=== PATIENT | female | born 1990 | race Caucasian/White ===

== ENCOUNTER 2019-08-28 22:40 | Emergency (ER) | payer MEDICAID ==
[2019-08-28 22:51] VITALS: BP 127/74
--- NOTE | 2019-08-28 23:14 | ER Document Report ---
ED Medical Screen (RME) - General Chief Complaint: Vaginal Bleeding Stated Complaint: VAGINAL BLEEDING Time Seen by Provider: 08/28/19 23:10 Mode of Arrival: Ambulatory Information source: Patient Notes: Patient is an otherwise healthy 29-year-old female presenting to the emergency department with chief complaint of vaginal bleeding in the setting of . Patient reports she had a positive approximately 2 weeks ago. Last menstrual cycle was in the middle of June putting her at potentially about 6 weeks . Patient reports tonight she started having bright red vaginal bleeding. She also has low abdominal cramping. Denies passage of any clots. Exam: Mild lower abdominal tenderness without guarding or rebound. I have greeted and performed a rapid initial assessment of this patient. A comprehensive ED assessment and evaluation of the patient, analysis of test results and completion of the medical decision making process will be conducted by additional ED providers. I have specifically instructed the patient or family members with the patient to immediately return to any nursing staff should anything change in the patient's condition or with their chief complaint. This medical record was dictated with voice recognizing software. There may be grammatical, syntax errors that are unintended. TRAVEL OUTSIDE OF THE [place] IN LAST 30 DAYS: No - Related Data Allergies/Adverse Reactions: No Known Allergies Allergy (Unverified 08/28/19 23:12) Past Medical History - Social History Chew tobacco use (# tins/day): No Frequency of alcohol use: None Physical Exam - Vital signs Vitals: Temp Pulse Resp BP Pulse Ox 98.1 F 77 20 127/74 H 100 08/28/19 22:50 08/28/19 22:50 08/28/19 22:50 08/28/19 22:50 08/28/19 22:50 Course - Vital Signs Vital signs: Temp Pulse Resp BP Pulse Ox 98.1 F 77 20 127/74 H 100 08/28/19 23:10 08/28/19 23:10 08/28/19 23:10 08/28/19 23:10 08/28/19 23:10
[2019-08-29 00:30] LABS: ABSOLUTE EOSINOPHILS # (AUTO) 0.3 10^3/uL (0.0-0.6); ABSOLUTE LYMPHOCYTES (AUTO) 2.2 10^3/uL (0.5-4.7); ABSOLUTE MONOCYTES (AUTO) 0.6 10^3/uL (0.1-1.4); ABSOLUTE NEUT (AUTO) 7.2 10^3/uL (1.7-8.2); BASOPHILS % (AUTO) 0.5 % (0-2); EOSINOPHILS % (AUTO) 2.9 % (0-6); HEMATOCRIT 37.5 % (36.0-47.0); HEMOGLOBIN 12.4 g/dL (12.0-15.5); LYMPHOCYTES % (AUTO) 20.8 % (13-45); MEAN CORPUSCULAR HEMOGLOBIN 27.7 pg (27.0-33.4); MEAN CORPUSCULAR HGB CONC 33.1 g/dL (32.0-36.0); MEAN CORPUSCULAR VOLUME 84 fl (80-97); MONOCYTES % (AUTO) 6.2 % (3-13); PLATELET COUNT 200 10^3/uL (150-450); RED BLOOD COUNT 4.49 10^6/uL (3.72-5.28); RED CELL DISTRIBUTION WIDTH 13.8 % (11.5-14.0); SEGMENTED NEUTROPHILS % (AUTO) 69.6 % (42-78); TOTAL CELLS COUNTED % (AUTO) 100 %; WHITE BLOOD COUNT 10.3 10^3/uL (4.0-10.5)
[2019-08-29 00:35] LABS: APPEARANCE,URINE SLIGHTLY-CLOUDY; BILIRUBIN,URINE NEGATIVE (NEGATIVE); COLOR,URINE YELLOW; GLUCOSE, URINE NEGATIVE (NEGATIVE); KETONES,URINE NEGATIVE (NEGATIVE); LEUKOCYTE ESTERASE,URINE TRACE (NEGATIVE); NITRITE,URINE NEGATIVE (NEGATIVE); PROTEIN,URINE NEGATIVE (NEGATIVE); URINE SPECIFIC GRAVITY 1.021; UROBILINOGEN,URINE NEGATIVE mg/dL (<2.0)
== END 2019-08-29 00:33 | disposition left against medical advice (07) ==
LOC: ER 22:40
DX: O20.9 Hemorrhage in early pregnancy, unspecified (principal); O26.891 Other specified pregnancy related conditions, first trimester; R10.30 Lower abdominal pain, unspecified; Z3A.00 Weeks of gestation of pregnancy not specified; Z53.20 Procedure and treatment not carried out because of patient's decision for unspecified reasons
CPT/HCPCS: 36415; 81001; 84702; 85025; 86900; 86901; 99281

== ENCOUNTER 2019-08-29 15:01 | Emergency (ER) | payer MEDICAID ==
--- NOTE | 2019-08-29 15:10 | ER Document Report ---
ED Medical Screen (RME) - General Chief Complaint: Vaginal Bleeding Stated Complaint: VAGINAL BLEEDING Time Seen by Provider: 08/29/19 15:04 Mode of Arrival: Ambulatory Information source: Patient Notes: 29-year-old female presented to ED for vaginal bleeding and pelvic cramping that started yesterday. 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 She states it was very heavy bleeding last night. She states her last menstrual cycle was around mid June and she is supposed to be around 2 months . She states she did not pass any tissue that she knows of just a lot of heavy bleeding. She states that the bleeding is much banquet director today. Will get blood urine and ultrasound to evaluate this . Patient does not know her blood type so we will get a RhoGam also. Patient states she does not smoke drink or use any drugs. Patient states she is also had some dizziness and cramping and lightheaded since yesterday. I have greeted and performed a rapid initial assessment of this patient. A comprehensive ED assessment and evaluation of the patient, analysis of test results and completion of medical decision making process will be conducted by an additional ED providers. TRAVEL OUTSIDE OF THE [place] IN LAST 30 DAYS: No - Related Data Allergies/Adverse Reactions: No Known Allergies Allergy (Unverified 08/28/19 23:12) Physical Exam - Vital signs Vitals: Temp Pulse Resp BP Pulse Ox 98.1 F 77 20 127/74 H 100 08/28/19 23:10 08/28/19 23:10 08/28/19 23:10 08/28/19 23:10 08/28/19 23:10 Course - Vital Signs Vital signs: Temp Pulse Resp BP Pulse Ox 98.1 F 77 20 127/74 H 100 08/28/19 23:10 08/28/19 23:10 08/28/19 23:10 08/28/19 23:10 08/28/19 23:10
[2019-08-29 15:42] LABS: ABSOLUTE EOSINOPHILS # (AUTO) 0.2 10^3/uL (0.0-0.6); ABSOLUTE LYMPHOCYTES (AUTO) 1.7 10^3/uL (0.5-4.7); ABSOLUTE MONOCYTES (AUTO) 0.5 10^3/uL (0.1-1.4); ABSOLUTE NEUT (AUTO) 6.7 10^3/uL (1.7-8.2); BASOPHILS % (AUTO) 0.4 % (0-2); EOSINOPHILS % (AUTO) 2.6 % (0-6); HEMATOCRIT 39.8 % (36.0-47.0); HEMOGLOBIN 13.5 g/dL (12.0-15.5); LYMPHOCYTES % (AUTO) 18.2 % (13-45); MEAN CORPUSCULAR HEMOGLOBIN 28.1 pg (27.0-33.4); MEAN CORPUSCULAR HGB CONC 33.9 g/dL (32.0-36.0); MEAN CORPUSCULAR VOLUME 83 fl (80-97); PLATELET COUNT 201 10^3/uL (150-450); RED CELL DISTRIBUTION WIDTH 13.7 % (11.5-14.0); SEGMENTED NEUTROPHILS % (AUTO) 72.8 % (42-78); TOTAL CELLS COUNTED % (AUTO) 100 %; WHITE BLOOD COUNT 9.2 10^3/uL (4.0-10.5)
[2019-08-29 15:54] LABS: APPEARANCE,URINE CLEAR; BILIRUBIN,URINE NEGATIVE (NEGATIVE); COLOR,URINE YELLOW; GLUCOSE, URINE NEGATIVE (NEGATIVE); KETONES,URINE NEGATIVE (NEGATIVE); PROTEIN,URINE NEGATIVE (NEGATIVE); URINE SPECIFIC GRAVITY 1.017; UROBILINOGEN,URINE NEGATIVE mg/dL (<2.0)
[2019-08-29 16:02] LABS: ALBUMIN 4.3 g/dL (3.5-5.0); ALKALINE PHOSPHATASE 54 U/L (38-126); ANION GAP 10 (5-19); ASPARTATE AMINO TRANSFERASE 20 U/L (14-36); BILIRUBIN,DIRECT 0.1 mg/dL (0.0-0.4); BILIRUBIN,TOTAL 0.6 mg/dL (0.2-1.3); BLOOD UREA NITROGEN 10 mg/dL (7-20); CALCIUM 9.6 mg/dL (8.4-10.2); CARBON DIOXIDE 26 mmol/L (22-30); CHLORIDE 101 mmol/L (98-107); GLUCOSE 105 mg/dL (75-110); TOTAL PROTEIN 7.9 g/dL (6.3-8.2)
--- NOTE | 2019-08-29 16:28 | RADIOLOGY REPORT (SQ) ---
EXAM DESCRIPTION: U/S OB TRANSVAG W/DOPPLER COMPLETED DATE/TIME: 08/29/2019 4:13 pm REASON FOR STUDY: vaginal bleeding cramping COMPARISON: None. TECHNIQUE: Transvaginal static and realtime grayscale images acquired of the pelvis. Additional breanna cted spectral and color Doppler images recorded. All images stored on PACs. bHCG: Not available. CLINICAL DATES: LMP 07/08/2019 7 weeks 3 days LIMITATIONS: None. FINDINGS: Twin Intra-uterine gestation TYPE OF TWIN: Dichorionic Diamniotic. Two gestation sacs. Two yolk sacs. TWIN A: ULTRASOUND EGA: 6 weeks 2 days ULTRASOUND BIRD: 04/21/2020 EFW: Not applicable. Under 20 weeks. CRL: 0.6 cm GESTATIONAL SAC: Not applicable. FP present. SURVEY: Too early to assess. FHR: 119 bpm. AMNIOTIC FLUID: Adequate amount. PLACENTA: Too early to assess. SUBCHORIONIC BLEED: Yes SIZE OF BLEED: 2.6 x 1.6 x 3.1 cm. TWIN B: ULTRASOUND EGA: 6 weeks 4 days ULTRASOUND BIRD: 04/19/2020 EFW: Not applicable. Under 20 weeks. CRL: 0.7 cm GESTATIONAL SAC: Not applicable. FP present. SURVEY: Too early to assess. FHR: 120 bpm. AMNIOTIC FLUID: Adequate amount. SUBCHORIONIC BLEED: Yes SIZE OF BLEED: See above UTERUS: No masses. No anomalies. CERVICAL LENGTH: 4.8 cm. Closed. RIGHT ADNEXA: Normal ovary with normal vascular flow. 1.6 x 2.5 x 2.9 cm. No adnexal free fluid. No adnexal masses. LEFT ADNEXA: Normal ovary with normal vascular flow. 2.3 x 2.3 x 1.7 cm. No adnexal free fluid. No adnexal masses. FREE FLUID: None. OTHER: No other significant finding. IMPRESSION: LIVING TWIN INTRAUTERINE TWIN A EGA: 6 weeks 2 days TWIN B EGA: 6 weeks 4 days Trimester of : First trimester - 0 to 13 weeks. TECHNICAL DOCUMENTATION: JOB ID: [id number]- All Rights Reserved rev Reading location - IP/workstation name: [email or web address]
--- NOTE | 2019-08-29 18:15 | ER Document Report ---
ED GI/ - General Chief Complaint: Vaginal Bleeding Stated Complaint: VAGINAL BLEEDING Time Seen by Provider: 08/29/19 15:04 [facility] - Follow up in 3-5 days Mode of Arrival: Ambulatory Information source: Patient Notes: Patient states that she is currently and developed pelvic cramping and vaginal bleeding yesterday. 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 Patient does complain of some low back pain as well. No urinary symptoms. Patient without any lightheadedness or dizziness at this time. Patient has not had an ultrasound to confirm the at this time. TRAVEL OUTSIDE OF THE [place] IN LAST 30 DAYS: No - HPI Patient complains to provider of: Pelvic pain, , Vaginal bleeding. 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 Menstrual period history: Sexual history: Active Associated symptoms: denies: Dysuria, Fever, Nausea, Urinary hesitancy, Urinary frequency, Urinary retention, Urinary urgency, Vaginal discharge, Vomiting Exacerbated by: Denies Relieved by: Denies Similar symptoms previously: No Recently seen / treated by doctor: No - Related Data Allergies/Adverse Reactions: No Known Allergies Allergy (Verified 08/29/19 15:09) Past Medical History - General Information source: Patient - Social History Smoking Status: Never Smoker Frequency of alcohol use: None Drug Abuse: None Occupation: [employer] Lives with: Family Family History: Reviewed & Not Pertinent Patient has suicidal ideation: No Patient has homicidal ideation: No - Medical History Medical History: Negative Past Surgical History: Reports: Orthopedic Surgery Review of Systems - Review of Systems Constitutional: No symptoms reported. denies: Fever, Recent illness EENT: No symptoms reported Cardiovascular: No symptoms reported. denies: Chest pain Respiratory: No symptoms reported. denies: Cough, Short of breath Gastrointestinal: Abdominal pain. denies: Nausea, Vomiting Genitourinary: No symptoms reported. denies: Dysuria, Flank pain Female Genitourinary: , Vaginal bleeding. denies: Vaginal discharge Musculoskeletal: Back pain Skin: No symptoms reported Hematologic/Lymphatic: No symptoms reported Neurological/Psychological: No symptoms reported Physical Exam - Vital signs Vitals: Temp Pulse Resp BP Pulse Ox 98.1 F 77 20 127/74 H 100 08/28/19 23:10 08/28/19 23:10 08/28/19 23:10 08/28/19 23:10 08/28/19 23:10 - General General appearance: Appears well, Alert In distress: None - HEENT Head: Normocephalic, Atraumatic Eyes: Normal Conjunctiva: Normal Nasal: Normal Mouth/Lips: Normal Mucous membranes: Normal Neck: Normal, Supple. No: Lymphadenopathy - Respiratory Respiratory status: No respiratory distress Chest status: Nontender Breath sounds: Normal. No: Rales, Rhonchi, Stridor, Wheezing Chest palpation: Normal - Cardiovascular Rhythm: Regular Heart sounds: S1 appreciated, S2 appreciated Murmur: No - Abdominal Inspection: Normal Distension: No distension Bowel sounds: Normal Tenderness: Nontender Organomegaly: No organomegaly - Back Back: Normal, Nontender. No: CVA tenderness - Extremities General upper extremity: Normal inspection, Normal ROM General lower extremity: Normal inspection, Normal ROM - Neurological Neuro grossly intact: Yes Cognition: Normal [place] Coma Scale Eye Opening: Spontaneous Veronica Coma Scale Verbal: Oriented Veronica Coma Scale Motor: Obeys Commands [place] Coma Scale Total: 15 - Psychological Associated symptoms: Normal affect, Normal mood - Skin Skin Temperature: Warm Skin Moisture: Dry Skin Color: Normal Course - Re-evaluation Re-evalutation: 08/29/19 18:12 Patient states that cramping is improved although not completely resolved at this time and vaginal bleeding is only light at this time. Patient advised of ultrasound report findings of twin gestation in addition to subchorionic bleed. Patient encouraged to follow-up with APPLIANCE ASSEMBLER for further evaluation and to initiate care. Patient without any concerns about STI - Vital Signs Vital signs: Temp Pulse Resp BP Pulse Ox 97.9 F 79 16 116/59 L 99 08/29/19 18:35 08/29/19 18:35 08/29/19 18:35 08/29/19 18:35 08/29/19 18:35 - Laboratory Result Diagrams: 08/29/19 15:22 08/29/19 15:22 Laboratory results interpreted by me: 08/29/19 15:22 Sodium 136.9 L Beta HCG, Quant 309166.00 H 08/29/19 18:12 Labs- Entire Visit 08/29/19 08/29/19 08/29/19 15:11 15:22 15:22 WBC 9.2 RBC 4.80 Hgb 13.5 Hct 39.8 MCV 83 MCH 28.1 MCHC 33.9 RDW 13.7 Plt Count 201 Lymph % (Auto) 18.2 [place] % (Auto) 6.0 Eos % (Auto) 2.6 Baso % (Auto) 0.4 Absolute Neuts (auto) 6.7 Absolute Lymphs (auto) 1.7 Absolute Monos (auto) 0.5 Absolute Eos (auto) 0.2 Absolute Basos (auto) 0.0 Seg Neutrophils % 72.8 Sodium 136.9 L Potassium 4.0 Chloride 101 Carbon Dioxide 26 Anion Gap 10 BUN 10 Creatinine 0.70 Est GFR ( Amer) > 60 Est GFR (MDRD) Non-Af > 60 Glucose 105 Calcium 9.6 Total Bilirubin 0.6 Direct Bilirubin 0.1 Neonat Total Bilirubin Not Reportable Neonat Direct Bilirubin Not Reportable Neonat Indirect Bili Not Reportable AST 20 ALT 16 Alkaline Phosphatase 54 Total Protein 7.9 Albumin 4.3 Beta HCG, Quant 220155.00 H Total Beta HCG POSITIVE Urine Color YELLOW Urine Appearance CLEAR Urine pH 7.0 Ur Specific [place] 1.017 Urine Protein NEGATIVE Urine Glucose (UA) NEGATIVE Urine Ketones NEGATIVE Urine Blood NEGATIVE Urine Nitrite (Reflex) NEGATIVE Urine Bilirubin NEGATIVE Urine Urobilinogen NEGATIVE Leukocyte Esterase Rfl NEGATIVE Urine Bacteria (Auto) 2+ Urine WBC (Reflex) 5 Squamous Epi Cells Auto 2 Urine Mucus (Auto) RARE Urine Ascorbic Acid NEGATIVE Blood Type Rhogam Indicated 08/29/19 15:22 WBC RBC Hgb Hct MCV MCH MCHC RDW Plt Count Lymph % (Auto) [place] % (Auto) Eos % (Auto) Baso % (Auto) Absolute Neuts (auto) Absolute Lymphs (auto) Absolute Monos (auto) Absolute Eos (auto) Absolute Basos (auto) Seg Neutrophils % Sodium Potassium Chloride Carbon Dioxide Anion Gap BUN Creatinine Est GFR ( Amer) Est GFR (MDRD) Non-Af Glucose Calcium Total Bilirubin Direct Bilirubin Neonat Total Bilirubin Neonat Direct Bilirubin Neonat Indirect Bili AST ALT Alkaline Phosphatase Total Protein Albumin Beta HCG, Quant Total Beta HCG Urine Color Urine Appearance Urine pH Ur Specific [place] Urine Protein Urine Glucose (UA) Urine Ketones Urine Blood Urine Nitrite (Reflex) Urine Bilirubin Urine Urobilinogen Leukocyte Esterase Rfl Urine Bacteria (Auto) Urine WBC (Reflex) Squamous Epi Cells Auto Urine Mucus (Auto) Urine Ascorbic Acid Blood Type A POSITIVE Rhogam Indicated RHOGAM NOT INDICATED - Diagnostic Test Radiology reviewed: Reports reviewed Discharge - Discharge Clinical Impression: Vaginal bleeding during Twin gestation in first trimester Qualifiers: Multiple gestation type: unspecified Qualified Code(s): O30.001 - Twin , unspecified number of placenta and unspecified number of amniotic sacs, first trimester Subchorionic bleed Qualifiers: Fetus number: single or unspecified fetus Trimester: first trimester Qualified Code(s): O41.8X10 - Other specified disorders of amniotic fluid and membranes, first trimester, not applicable or unspecified Condition: Stable Disposition: HOME, SELF-CARE Instructions: Bleeding During Early ([facility]) Additional Instructions: Return immediately for any new or worsening symptoms Followup with your primary care provider, call tomorrow to make a followup appointment Follow-up with APPLIANCE ASSEMBLER to establish care. Pelvic rest until symptoms have resolved Forms: Return to Work Referrals: [facility] [Provider Group] - Follow up in 3-5 days
[2019-08-29 18:37] VITALS: BP 116/59
== END 2019-08-29 18:35 | disposition home or self-care (01) ==
LOC: ER 15:01
DX: O30.001 Twin pregnancy, unspecified number of placenta and unspecified number of amniotic sacs, first trimester (principal); O41.8X10 Other specified disorders of amniotic fluid and membranes, first trimester, not applicable or unspecified; M54.5 Low back pain
CPT/HCPCS: 36415; 76817; 80053; 81001; 84702; 85025; 86900; 86901; 93976; 99284

== ENCOUNTER 2019-09-02 05:18 | Emergency (ER) | payer MEDICAID ==
[2019-09-02 06:03] LABS: ABSOLUTE EOSINOPHILS # (AUTO) 0.2 10^3/uL (0.0-0.6); ABSOLUTE LYMPHOCYTES (AUTO) 1.6 10^3/uL (0.5-4.7); ABSOLUTE MONOCYTES (AUTO) 0.5 10^3/uL (0.1-1.4); ABSOLUTE NEUT (AUTO) 5.8 10^3/uL (1.7-8.2); BASOPHILS % (AUTO) 0.5 % (0-2); EOSINOPHILS % (AUTO) 2.6 % (0-6); HEMATOCRIT 35.7 % (36.0-47.0); LYMPHOCYTES % (AUTO) 19.4 % (13-45); MEAN CORPUSCULAR HEMOGLOBIN 27.9 pg (27.0-33.4); MEAN CORPUSCULAR HGB CONC 33.5 g/dL (32.0-36.0); MEAN CORPUSCULAR VOLUME 83 fl (80-97); MONOCYTES % (AUTO) 6.5 % (3-13); PLATELET COUNT 178 10^3/uL (150-450); RED BLOOD COUNT 4.28 10^6/uL (3.72-5.28); RED CELL DISTRIBUTION WIDTH 13.8 % (11.5-14.0); TOTAL CELLS COUNTED % (AUTO) 100 %; WHITE BLOOD COUNT 8.2 10^3/uL (4.0-10.5)
[2019-09-02 06:09] LABS: APPEARANCE,URINE SLIGHTLY-CLOUDY; BILIRUBIN,URINE NEGATIVE (NEGATIVE); COLOR,URINE YELLOW; GLUCOSE, URINE NEGATIVE (NEGATIVE); KETONES,URINE NEGATIVE (NEGATIVE); LEUKOCYTE ESTERASE,URINE MODERATE (NEGATIVE); NITRITE,URINE NEGATIVE (NEGATIVE); PROTEIN,URINE NEGATIVE (NEGATIVE); URINE SPECIFIC GRAVITY 1.018; UROBILINOGEN,URINE NEGATIVE mg/dL (<2.0)
[2019-09-02 06:21] LABS: ALBUMIN 3.8 g/dL (3.5-5.0); ALKALINE PHOSPHATASE 42 U/L (38-126); ANION GAP 9 (5-19); ASPARTATE AMINO TRANSFERASE 17 U/L (14-36); BILIRUBIN,DIRECT 0.1 mg/dL (0.0-0.4); BILIRUBIN,TOTAL 0.3 mg/dL (0.2-1.3); BLOOD UREA NITROGEN 12 mg/dL (7-20); CALCIUM 9.1 mg/dL (8.4-10.2); CARBON DIOXIDE 25 mmol/L (22-30); CHLORIDE 103 mmol/L (98-107); GLUCOSE 90 mg/dL (75-110); POTASSIUM 3.8 mmol/L (3.6-5.0); TOTAL PROTEIN 6.9 g/dL (6.3-8.2)
--- NOTE | 2019-09-02 07:19 | RADIOLOGY REPORT (SQ) ---
Ultrasound OB transvaginal on 09/02/2019 at 6:37 AM CLINICAL INDICATION: , bleeding COMPARISON: 08/29/2019 FINDINGS: Multiple sonographic images are obtained throughout the pelvis by transvaginal approach, both transverse and sagittal images are obtained. Uterus measures approximately 12.1 x 7.5 x 8.5 cm. Very small amount of free fluid is noted in the pelvis. Right ovary measures approximately 2.0 x 1.9 x 1.5 cm. Flow is demonstrated in the right ovary. The left ovary measures approximately 4.2 x 2.1 x 2.6 cm. Flow is demonstrated in the left ovary. There is a small 1.8 x 1.5 x 1.9 cm corpus luteal cyst in the left ovary which should be considered benign with no follow-up recommended. Twin intrauterine pregnancies are again identified with two gestational sacs with two yolk sacs and two poles. There is again noted a moderate to large sized subchorionic hemorrhage adjacent to the gestational sacs measuring up to 3.9 x 2.2 x 1.6 cm. Gestational sac shapes appears unremarkable. Gestation is too early for placental evaluation. Baby A: Mccracken-rump length is consistent with six week five day gestation. Positive cardiac activity is noted with a heart rate of 139 bpm. Baby B: Mccracken-rump length measurement is consistent with a seven week gestation. Positive cardiac activity is noted with a heart rate of 136 bpm. IMPRESSION: Twin living intrauterine pregnancies again identified with a relatively large adjacent subchorionic hemorrhage.
--- NOTE | 2019-09-02 07:45 | ER Document Report ---
ED General - General Chief Complaint: Vaginal Bleeding Stated Complaint: VAGINAL BLEEDING/LIGHT HEADED Time Seen by Provider: 09/02/19 06:12 TRAVEL OUTSIDE OF THE [place] IN LAST 30 DAYS: No - HPI Notes: Patient presents with vaginal bleeding. She states this started 2 to 3 days ago. It has been intermittent. Nothing makes it better or worse. She has not had clots. She states she was here approximately 5 days ago with similar symptoms and had an ultrasound at that time. She has been referred to the health department. She has not yet followed up with her. She denies any significant abdominal pain. She states she occasionally feels lightheaded and dizzy. No dysuria urgency or frequency. No significant vomiting. There is no radiation of the symptoms. The symptoms have been intermittent. They have been moderate. - Related Data Allergies/Adverse Reactions: No Known Allergies Allergy (Verified 09/02/19 05:28) Past Medical History - General Information source: Patient - Social History Smoking Status: Never Smoker Frequency of alcohol use: None Drug Abuse: None Family History: Reviewed & Not Pertinent Patient has suicidal ideation: No Patient has homicidal ideation: No Past Surgical History: Reports: Hx Orthopedic Surgery Review of Systems - Review of Systems Constitutional: denies: Chills, Fever Cardiovascular: denies: Chest pain, Palpitations Respiratory: denies: Cough, Short of breath -: Yes All other systems reviewed and negative Physical Exam - Vital signs Vitals: Temp Pulse Resp BP 97.9 F 70 16 108/62 09/02/19 05:18 09/02/19 05:18 09/02/19 05:18 09/02/19 05:18 Interpretation: Normal - General General appearance: Appears well, Alert - HEENT Head: Normocephalic, Atraumatic Eyes: Normal Pupils: PERRL - Respiratory Respiratory status: No respiratory distress Chest status: Nontender Breath sounds: Normal Chest palpation: Normal - Cardiovascular Rhythm: Regular Heart sounds: Normal auscultation Murmur: No - Abdominal Inspection: Normal Distension: No distension Bowel sounds: Normal Tenderness: Nontender Organomegaly: No organomegaly - Back Back: Normal, Nontender - Extremities General upper extremity: Normal inspection, Nontender, Normal color, Normal ROM, Normal temperature General lower extremity: Normal inspection, Nontender, Normal color, Normal ROM, Normal temperature, Normal weight bearing. No: Álvaro's sign - Neurological Neuro grossly intact: Yes Cognition: Normal Orientation: AAOx4 [place] Coma Scale Eye Opening: Spontaneous Veronica Coma Scale Verbal: Oriented Veronica Coma Scale Motor: Obeys Commands [place] Coma Scale Total: 15 Speech: Normal Motor strength normal: LUE, RUE, LLE, RLE Sensory: Normal - Psychological Associated symptoms: Normal affect, Normal mood - Skin Skin Temperature: Warm Skin Moisture: Dry Skin Color: Normal Course - Re-evaluation Re-evalutation: 09/02/19 07:41 Patient presents for the second time in 5 days with vaginal bleeding. She has an early twin gestation. There is a subchorionic hemorrhage which is most likely the source of the bleeding. However given the patient's early gestational status at this time the best recommendation will be no intercourse and bed rest and follow-up with OB as soon as possible. Patient also has a significant amount of bacteria in the urine and will be treated with Keflex. - Vital Signs Vital signs: Temp Pulse Resp BP Pulse Ox 97.9 F 70 16 108/62 09/02/19 05:18 09/02/19 05:18 09/02/19 05:18 09/02/19 05:18 - Laboratory Result Diagrams: 09/02/19 05:50 09/02/19 05:50 Laboratory results interpreted by me: 09/02/19 09/02/19 05:50 05:50 Hct 35.7 L Urine Blood MODERATE H Ur Leukocyte Esterase MODERATE H - Diagnostic Test Radiology reviewed: Image reviewed, Reports reviewed Discharge - Discharge Clinical Impression: Threatened , Bacteriuria during in first trimester Subchorionic bleed Qualifiers: Fetus number: single or unspecified fetus Trimester: first trimester Qualified Code(s): O41.8X10 - Other specified disorders of amniotic fluid and membranes, first trimester, not applicable or unspecified; O46.8X1 - Other antepartum hemorrhage, first trimester Condition: Stable Disposition: HOME, SELF-CARE Instructions: Bleeding During Early ([facility]), Ob-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 You have bacteria in your urine and will be treated with antibiotics. Please have bed rest as much as possible. Please do not have intercourse or insert anything in your vaginal canal until you are seen by an dust handler. Prescriptions: Cephalexin Monohydrate [Keflex 500 mg Capsule] 500 mg PO Q6H 5 Days capsule Forms: Return to Work Referrals: YNES CHEN MD [ACTIVE STAFF] - Follow up in 3-5 days
[2019-09-02 08:21] VITALS: BP 122/71
== END 2019-09-02 08:20 | disposition home or self-care (01) ==
LOC: ER 05:18
DX: O20.0 Threatened abortion (principal); O28.8 Other abnormal findings on antenatal screening of mother; O41.8X10 Other specified disorders of amniotic fluid and membranes, first trimester, not applicable or unspecified; O26.891 Other specified pregnancy related conditions, first trimester; R42 Dizziness and giddiness; Z3A.01 Less than 8 weeks gestation of pregnancy
CPT/HCPCS: 36415; 76817; 80053; 81001; 83690; 84702; 85025; 93976; 99284

== ENCOUNTER 2019-09-21 14:19 | Emergency (ER) | payer MEDICAID ==
[2019-09-21] MEDS ORDERED: METOCLOPRAMIDE HCL INJ/PF 10 MG/2 ML SDV IV ONE (15:08)
[2019-09-21] MEDS ORDERED: RINGERS SOLUTION,LACTATED 1,000 ML IV ONE (15:08)
--- NOTE | 2019-09-21 15:09 | ER Document Report ---
ED Medical Screen (RME) - General Chief Complaint: Nausea/Vomiting Stated Complaint: NAUSEA/VOMITING Time Seen by Provider: 09/21/19 15:03 Mode of Arrival: Ambulatory Information source: Patient Notes: 29-year-old female with twins approximately 9 weeks G4, P3 presents emergency department with complaints of nausea vomiting for the past 2 weeks but worse the last 2 days. Denies fever diarrhea. Reports she feels lightheaded when she stands up. Did not receive the flu vaccine this year. Denies abdominal pain. Denies pain with void. Denies vaginal bleeding denies vaginal discharge. I have greeted and performed a rapid initial assessment of this patient. A comprehensive ED assessment and evaluation of the patient, analysis of test results and completion of the medical decision making process will be conducted by additional ED providers. TRAVEL OUTSIDE OF THE [place] IN LAST 30 DAYS: No - Related Data Allergies/Adverse Reactions: No Known Allergies Allergy (Verified 09/21/19 15:04) Past Medical History - Social History Chew tobacco use (# tins/day): No Frequency of alcohol use: None Drug Abuse: None Past Surgical History: Reports: Hx Orthopedic Surgery Physical Exam - Vital signs Vitals: Temp Pulse Resp BP Pulse Ox 98.2 F 100 18 117/63 100 09/21/19 14:50 09/21/19 14:50 09/21/19 14:50 09/21/19 14:50 09/21/19 14:50 Course - Vital Signs Vital signs: Temp Pulse Resp BP Pulse Ox 98.2 F 100 18 117/63 100 09/21/19 14:50 09/21/19 14:50 09/21/19 14:50 09/21/19 14:50 09/21/19 14:50
[2019-09-21 15:55] LABS: ABSOLUTE BASOPHILS # (AUTO) 0.1 10^3/uL (0.0-0.2); ABSOLUTE EOSINOPHILS # (AUTO) 0.2 10^3/uL (0.0-0.6); ABSOLUTE LYMPHOCYTES (AUTO) 1.3 10^3/uL (0.5-4.7); ABSOLUTE MONOCYTES (AUTO) 0.6 10^3/uL (0.1-1.4); ABSOLUTE NEUT (AUTO) 7.2 10^3/uL (1.7-8.2); BASOPHILS % (AUTO) 0.9 % (0-2); EOSINOPHILS % (AUTO) 1.8 % (0-6); HEMATOCRIT 37.7 % (36.0-47.0); LYMPHOCYTES % (AUTO) 13.8 % (13-45); MEAN CORPUSCULAR HEMOGLOBIN 28.5 pg (27.0-33.4); MEAN CORPUSCULAR HGB CONC 34.5 g/dL (32.0-36.0); MEAN CORPUSCULAR VOLUME 83 fl (80-97); MONOCYTES % (AUTO) 6.5 % (3-13); PLATELET COUNT 194 10^3/uL (150-450); RED BLOOD COUNT 4.56 10^6/uL (3.72-5.28); RED CELL DISTRIBUTION WIDTH 14.2 % (11.5-14.0); TOTAL CELLS COUNTED % (AUTO) 100 %; WHITE BLOOD COUNT 9.3 10^3/uL (4.0-10.5)
[2019-09-21 16:08] LABS: ALBUMIN 4.2 g/dL (3.5-5.0); ALKALINE PHOSPHATASE 57 U/L (38-126); ASPARTATE AMINO TRANSFERASE 21 U/L (14-36); BILIRUBIN,DIRECT 0.2 mg/dL (0.0-0.4); BILIRUBIN,TOTAL 0.8 mg/dL (0.2-1.3); BLOOD UREA NITROGEN 11 mg/dL (7-20); CALCIUM 9.9 mg/dL (8.4-10.2); CARBON DIOXIDE 25 mmol/L (22-30); GLUCOSE 81 mg/dL (75-110); POTASSIUM 4.1 mmol/L (3.6-5.0); TOTAL PROTEIN 7.7 g/dL (6.3-8.2)
[2019-09-21 16:09] LABS: A TYPE INFLUENZA AG NEGATIVE (NEGATIVE); B INFLUENZA AG NEGATIVE (NEGATIVE)
[2019-09-21 16:10] LABS: ANION GAP 15 (5-19); CHLORIDE 97 mmol/L (98-107)
--- NOTE | 2019-09-21 17:38 | ER Document Report ---
ED GI/ - General Chief Complaint: Nausea/Vomiting Stated Complaint: NAUSEA/VOMITING Time Seen by Provider: 09/21/19 15:03 Mode of Arrival: Ambulatory Information source: Patient Notes: 29-year-old female with twins approximately 9 weeks G4, P3 presents emergency department with complaints of nausea vomiting for the past 2 weeks but worse the last 2 days. Denies fever diarrhea. Reports she feels lightheaded when she stands up. Did not receive the flu vaccine this year. Denies abdominal pain. Denies pain with void. Denies vaginal bleeding denies vaginal discharge. TRAVEL OUTSIDE OF THE [place] IN LAST 30 DAYS: No - Related Data Allergies/Adverse Reactions: No Known Allergies Allergy (Verified 09/21/19 15:04) Past Medical History - General Information source: Patient - Social History Smoking Status: Never Smoker Chew tobacco use (# tins/day): No Frequency of alcohol use: None Drug Abuse: None Family History: Reviewed & Not Pertinent Patient has suicidal ideation: No Patient has homicidal ideation: No - Medical History Medical History: Negative Past Surgical History: Reports: Hx Orthopedic Surgery - Immunizations Immunizations up to date: Yes Review of Systems - Review of Systems Constitutional: No symptoms reported EENT: No symptoms reported Cardiovascular: No symptoms reported Respiratory: No symptoms reported Gastrointestinal: See HPI Genitourinary: No symptoms reported Female Genitourinary: No symptoms reported Musculoskeletal: No symptoms reported Skin: No symptoms reported Hematologic/Lymphatic: No symptoms reported Neurological/Psychological: No symptoms reported Physical Exam - Vital signs Vitals: Temp Pulse Resp BP Pulse Ox 98.2 F 100 18 117/63 100 09/21/19 14:50 09/21/19 14:50 09/21/19 14:50 09/21/19 14:50 09/21/19 14:50 - Notes Notes: PHYSICAL EXAMINATION: GENERAL: Well-appearing, well-nourished and in no acute distress. HEAD: Atraumatic, normocephalic. EYES: Pupils equal round and reactive to light, extraocular movements intact, conjunctiva are normal. ENT: Nares patent, oropharynx clear without exudates. Moist mucous membranes. NECK: Normal range of motion, supple without lymphadenopathy LUNGS: Breath sounds clear to auscultation bilaterally and equal. No wheezes rales or rhonchi. HEART: Regular rate and rhythm without murmurs ABDOMEN: Soft, nontender, nondistended abdomen. No guarding, no rebound. No masses appreciated. Female : deferred Musculoskeletal: Normal range of motion, no pitting or edema. No cyanosis. NEUROLOGICAL: Cranial nerves grossly intact. Normal speech, normal gait. Normal sensory, motor exams PSYCH: Normal mood, normal affect. SKIN: Warm, Dry, normal turgor, no rashes or lesions noted. Course - Re-evaluation Re-evalutation: Patient appears well, nontoxic, vital signs within normal limits. Physical exam is unremarkable. At the time that I have seen patient urine still pending, patient reports she feels much better, she states she needs to leave. Her children are at the bedside with her. I will let her go home and I told her I will follow-up on her urine and I will personally call her if there is any abnormality. Patient verbalizes understanding and agreement with this, strict ED return precautions discussed. - Vital Signs Vital signs: Temp Pulse Resp BP Pulse Ox 98.3 F 86 14 124/71 99 09/21/19 17:55 09/21/19 17:55 09/21/19 17:55 09/21/19 17:55 09/21/19 17:55 - Laboratory Result Diagrams: 09/21/19 15:30 09/21/19 15:30 Laboratory results interpreted by me: 09/21/19 09/21/19 09/21/19 15:27 15:30 15:30 RDW 14.2 H Sodium 136.5 L Chloride 97 L Urine Ketones 80 H Ur Leukocyte Esterase MODERATE H Discharge - Discharge Clinical Impression: Nausea and vomiting during Condition: Stable Disposition: HOME, SELF-CARE Additional Instructions: Drink plenty of fluids. Take medication as prescribed for nausea or vomiting. Follow-up with [facility] in the next 3 to 5 days for follow-up. Return to the emergency department any new or worsening symptoms as discussed. Prescriptions: Metoclopramide HCl [Reglan 10 mg Tablet] 1 - 2 tab PO ASDIR PRN #25 tablet PRN Reason:
[2019-09-21 18:01] VITALS: BP 124/71
[2019-09-21 18:14] LABS: APPEARANCE,URINE SLIGHTLY-CLOUDY; BILIRUBIN,URINE NEGATIVE (NEGATIVE); COLOR,URINE YELLOW; GLUCOSE, URINE NEGATIVE (NEGATIVE); KETONES,URINE 80 mg/dL (NEGATIVE); LEUKOCYTE ESTERASE,URINE MODERATE (NEGATIVE); NITRITE,URINE NEGATIVE (NEGATIVE); PROTEIN,URINE NEGATIVE (NEGATIVE); URINE SPECIFIC GRAVITY 1.013; UROBILINOGEN,URINE NEGATIVE mg/dL (<2.0)
== END 2019-09-21 17:55 | disposition home or self-care (01) ==
LOC: ER 14:19
DX: O30.001 Twin pregnancy, unspecified number of placenta and unspecified number of amniotic sacs, first trimester (principal); O21.9 Vomiting of pregnancy, unspecified; Z3A.09 9 weeks gestation of pregnancy
CPT/HCPCS: 99284; 96361; 96374; 36415; 87086; 85025; 87088; 80053; 81001; 87804; J2765; J7120

== ENCOUNTER 2020-03-08 18:46 | Outpatient (CLI) | payer MEDICAID ==
--- NOTE | 2020-03-08 20:06 | Non Stress Test Report ---
Non Stress Test Datetime Report Generated by CPN: 03/08/2020 20:06 INDICATION Indication for Study (NST) Other: reduced movement of b baby VITAL SIGNS Temperature - NST: 98.2 Pulse - NST: 77 RESP - NST: 16 NBPSYS NST: 115 NBPDIA NST: 67 MONITORING Monitor Explained: Monitor Explained; Test Explained; Patient Verbalized Understanding Time on Monitor: 03/08/2020 19:10 Time off Monitor: 03/08/2020 20:05 NST Duration: 55 NST INTERVENTIONS NST Interventions: PO Hydration; Reposition Patient Physician Notified NST: Dr Shahzad BABY A: [id number] BABY A Movement : Present Contraction Frequency : 0 FHR Baseline : 145 Accelerations : 15X15 Decelerations : None Variability : Moderate 6-25bpm NST Review: Meets Criteria for Reactive NST NST Review and Verified By : FERMIN Hansen Results: Reactive BABY B Movement: Present FHR Baseline: 140 Accelerations: 15X15 Decelerations: None Variability: Moderate 6-25bpm NST Results: Reactive NST REPORT Report Trigger: Send Report
[2020-03-08 21:01] LABS: URINE AMPHETAMINES SCREEN NEGATIVE; URINE BARBITURATES SCREEN NEGATIVE; URINE BENZODIAZEPINES SCREEN NEGATIVE; URINE COCAINE SCREEN NEGATIVE; URINE MARIJUANA (THC) SCREEN NEGATIVE; URINE METHADONE SCREEN NEGATIVE; URINE PHENCYCLIDINE SCREEN NEGATIVE
== END 2020-03-08 20:23 | disposition home or self-care (01) ==
LOC: LC 18:46
PROVIDERS: ATTEND Obstetrics & Gynecology
DX: O36.8132 Decreased fetal movements, third trimester, fetus 2 (principal); O30.003 Twin pregnancy, unspecified number of placenta and unspecified number of amniotic sacs, third trimester; Z3A.34 34 weeks gestation of pregnancy
CPT/HCPCS: 59025; 80307

== ENCOUNTER 2020-03-30 08:05 | Inpatient (IN) | payer MEDICAID ==
[2020-03-24 11:56] LABS: ABSOLUTE EOSINOPHILS # (AUTO) 0.1 10^3/uL (0.0-0.6); ABSOLUTE LYMPHOCYTES (AUTO) 1.5 10^3/uL (0.5-4.7); ABSOLUTE MONOCYTES (AUTO) 0.7 10^3/uL (0.1-1.4); ABSOLUTE NEUT (AUTO) 6.6 10^3/uL (1.7-8.2); BASOPHILS % (AUTO) 0.2 % (0-2); EOSINOPHILS % (AUTO) 0.9 % (0-6); HEMATOCRIT 29.1 % (36.0-47.0); HEMOGLOBIN 9.4 g/dL (12.0-15.5); LYMPHOCYTES % (AUTO) 17.1 % (13-45); MEAN CORPUSCULAR HEMOGLOBIN 22.2 pg (27.0-33.4); MEAN CORPUSCULAR HGB CONC 32.3 g/dL (32.0-36.0); MEAN CORPUSCULAR VOLUME 69 fl (80-97); MONOCYTES % (AUTO) 7.5 % (3-13); PLATELET COUNT 210 10^3/uL (150-450); RED BLOOD COUNT 4.23 10^6/uL (3.72-5.28); RED CELL DISTRIBUTION WIDTH 18.2 % (11.5-14.0); SEGMENTED NEUTROPHILS % (AUTO) 74.3 % (42-78); TOTAL CELLS COUNTED % (AUTO) 100 %; WHITE BLOOD COUNT 8.9 10^3/uL (4.0-10.5)
[2020-03-24 12:02] LABS: APPEARANCE,URINE SLIGHTLY-CLOUDY; BILIRUBIN,URINE NEGATIVE (NEGATIVE); COLOR,URINE AMBER; GLUCOSE, URINE NEGATIVE (NEGATIVE); KETONES,URINE TRACE mg/dL (NEGATIVE); LEUKOCYTE ESTERASE,URINE MODERATE (NEGATIVE); NITRITE,URINE NEGATIVE (NEGATIVE); PROTEIN,URINE 30 mg/dL (NEGATIVE); URINE SPECIFIC GRAVITY 1.021
[2020-03-24 13:20] LABS: URINE AMPHETAMINES SCREEN NEGATIVE; URINE BARBITURATES SCREEN NEGATIVE; URINE BENZODIAZEPINES SCREEN NEGATIVE; URINE COCAINE SCREEN NEGATIVE; URINE MARIJUANA (THC) SCREEN NEGATIVE; URINE METHADONE SCREEN NEGATIVE; URINE PHENCYCLIDINE SCREEN NEGATIVE
[~2020-03-30 08:05] MED LIST: CEFAZOLIN SODIUM 2 GM in DEXTROSE 5%-WATER 100 ML IV PRN; LACTATED RINGERS 1000 ML IV PRN; RINGERS SOLUTION,LACTATED 1,000 ML IV ONE
[2020-03-30] MEDS ORDERED: CEFAZOLIN 2 GM/D5W RTU 2 GM/50 ML RTUPB IV ONE (09:42)
[2020-03-30] MEDS ORDERED: DIPHENHYDRAMINE HCL 50 MG/ML VIAL ONE (10:23)
[2020-03-30] MEDS ORDERED: OXYTOCIN 10 UNIT/ML VIAL ONE (10:23)
[2020-03-30] MEDS ORDERED: KETOROLAC TROMETHAMINE INJ/PF 30 MG/1 ML SDV ONE (10:23)
[2020-03-30] MEDS ORDERED: ACETAMINOPHEN 1,000 MG/100 ML RTUPB IV ONE (10:24)
[2020-03-30] MEDS ORDERED: ONDANSETRON HCL INJ/PF 4 MG/2 ML SDV ONE (10:24)
[2020-03-30] MEDS ORDERED: FENTANYL CITRATE INJ/PF 100 MCG/2 ML AMPUL ONE (10:24)
[2020-03-30] MEDS ORDERED: ROPIVACAINE HCL 0.2% INJ/PF (2 MG/ML) 20 ML SDV ONE (10:27)
[2020-03-30] MEDS ORDERED: MEPERIDINE HCL/PF INJ 25 MG/1 ML DISP.SYRIN IV PRN (10:59)
[2020-03-30] MEDS ORDERED: PROMETHAZINE HCL INJ 25 MG/1 ML VIAL IV PRN ×2 (10:59→11:42)
[2020-03-30] MEDS ORDERED: FENTANYL CITRATE INJ/PF 100 MCG/2 ML AMPUL IV PRN ×3 (10:59)
[2020-03-30] MEDS ORDERED: DIPHENHYDRAMINE HCL 50 MG/ML VIAL IV PRN (10:59)
[2020-03-30] MEDS ORDERED: MORPHINE SULFATE 10 MG/ML INJ IV PRN ×2 (10:59→11:42)
[2020-03-30] MEDS ORDERED: RINGERS SOLUTION,LACTATED 1,000 ML IV PRN (11:42)
[2020-03-30] MEDS ORDERED: MEASLES,MUMPS&RUBELLA VACC/PF 0.5 ML VIAL SUBCUT PRN (11:42)
[2020-03-30] MEDS ORDERED: SIMETHICONE 80 MG TAB.CHEW PO PRN (11:42)
[2020-03-30] MEDS ORDERED: DIPH/PERTUSS(ACELL)/TETANUS VAC/PF 0.5 ML SYR (>=10YO) IM PRN (11:42)
[2020-03-30] MEDS ORDERED: OXYCODONE-ACETAMINOPHEN 5-325 MG TABLET PO PRN (11:42)
[2020-03-30] MEDS ORDERED: ACETAMINOPHEN 325 MG TABLET PO PRN (11:42)
[2020-03-30] MEDS ORDERED: OXYTOCIN/0.9 % SODIUM CHLORIDE 30 UNIT/500 ML RTUINJ IV PRN (11:42)
--- NOTE | 2020-03-30 11:53 | Operative Report ---
Operative Report DATE OF SURGERY: 03/30/20 PREOPERATIVE DIAGNOSIS: IUP @ 37 wks, di/di twin gestation, undesired fertility POSTOPERATIVE DIAGNOSIS: same OPERATION: Primary low transverse hysterotomy section with marked [place] tubal ligation SURGEON: YNES CHEN ANESTHESIA: Spinal TISSUE REMOVED OR ALTERED: Placentas, bilateral fallopian tube segments COMPLICATIONS: None ESTIMATED BLOOD LOSS: 800 cc INTRAOPERATIVE FINDINGS: Male 's both in cephalic presentation with Apgars of 8 and 9 normal uterus tubes and ovaries PROCEDURE: The patient was taken to the operating room, prepared and draped in anormal sterile fashion in a supine position with a leftward tilt. A transverse skin incision was made with a scalpel and carried through tothe underlying layer of fascia with the same scalpel. The fascia was excised in the midline and extended laterally with Doris. The fascia was then dissected from the rectus muscle sharply with Doris and the rectus muscle was divided and the peritoneal cavity was entered sharply with the same Metzenbaum. With good visualization of the bladder and the uterus the bladder blade was inserted. The hysterotomy was nicked with a scalpel and extended laterally with surgeon finger fraction. The infant A was then delivered atraumatically. The nose and mouth were suctioned with a suction bulb, the cord was clamped and cut and handed off to awaiting pediatricians. Cord blood was collected. Amniotomy was then performed on the second amniotic sac and the second infant was delivered atraumatically nose and mouth were suctioned with a suction bulb cord was clamped and cut and the infant was handed off to waiting pediatricians. Cord blood was collected and this umbilical cord was marked with 2 umbilical clamps. Placentas were removed manually. The uterus was exteriorized and cleared of clots and debris. The hysterotomy was closed with 0 Monocryl in a running, locked fashion. A second layer of the same suture was used to imbricate to ensure hemostasis. Attention was then turned to the fallopian tubes where the right fallopian tube was grasped with a Ella, the mesosalpinx was divided with a Bovie. a 3-1/2 cm segment of fallopian tube was tied off with 2 pieces of 2-0 chromic.this segment was ligated using Metzenbaums and the pedicles were made hemostatic with the Bovie. This procedure was repeated on the left fallopian tube without difficulty. The uterus was returned to the abdomen and peritoneal cavity was cleared of clots and debris. The pedicles were inspected and they were still hemostatic. The rectus muscle and peritoneum were repaired with mattress stitch of 2-0 Chromic. The fascia was closed with 0-Vicryl. The subcutaneous layer was closed with plain catgut and the skin was closed with 4-0 Vicryl. The patient tolerated the procedure well. Sponge, lap, and needle counts correct x2 and the patient was taken to recovery in stable condition.
[2020-03-30] MEDS ORDERED: OXYTOCIN/0.9 % SODIUM CHLORIDE 30 UNIT/500 ML RTUINJ ONE (12:11)
[2020-03-30] MEDS ORDERED: METHYLERGONOVINE MALEATE INJ/PF 0.2 MG/1 ML AMPULE IV ONE (13:26)
[2020-03-30] MEDS ORDERED: METHYLERGONOVINE MALEATE INJ/PF 0.2 MG/1 ML AMPULE ONE (13:29)
[2020-03-30] MEDS: IBUPROFEN 800 MG TABLET PO SCH ×2 (14:08→17:14)
[2020-03-30] MEDS: OXYCODONE-ACETAMINOPHEN 5-325 MG TABLET PO PRN (14:50)
[2020-03-30] MEDS: KETOROLAC TROMETHAMINE INJ/PF 30 MG/1 ML SDV IV SCH ×2 (14:51→22:16)
[2020-03-30] MEDS: DOCUSATE SODIUM 100 MG CAPSULE PO SCH (17:14)
[2020-03-31] MEDS: IBUPROFEN 800 MG TABLET PO SCH ×5 (01:00→23:34)
[2020-03-31] MEDS: KETOROLAC TROMETHAMINE INJ/PF 30 MG/1 ML SDV IV SCH (05:14)
[2020-03-31 08:08] LABS: HEMATOCRIT 25.2 % (36.0-47.0); MEAN CORPUSCULAR HEMOGLOBIN 21.6 pg (27.0-33.4); MEAN CORPUSCULAR HGB CONC 31.7 g/dL (32.0-36.0); MEAN CORPUSCULAR VOLUME 68 fl (80-97); PLATELET COUNT 170 10^3/uL (150-450); RED BLOOD COUNT 3.69 10^6/uL (3.72-5.28); RED CELL DISTRIBUTION WIDTH 17.8 % (11.5-14.0); WHITE BLOOD COUNT 12.3 10^3/uL (4.0-10.5)
--- NOTE | 2020-03-31 09:38 | PDOC PROGRESS REPORT ---
Subjective-OB Progress Note for:: 03/31/20 Subjective: reports bleeding slowing, pain controlled with current meds. denies needs Physical Exam (OB) Vital Signs: Temp Pulse Resp BP Pulse Ox 97.5 F 67 16 125/70 100 03/31/20 07:41 03/31/20 07:41 03/31/20 07:41 03/31/20 07:41 03/31/20 07:41 Intake & Output 03/30/20 03/31/20 04/01/20 06:59 06:59 06:59 Intake Total 1000 Output Total 1200 Balance -200 Weight 74.389 kg - Dressing Removed: No Incision: Dressing Closure Type: opsite - Abdomen Description: Tender, Soft, Round Fundal Description: Firm, Midline Fundal Height: u/u - u/2 - Abdominal Distension: No distension - Extremities Lower extremities: Álvaro's sign - neg Calf: Normal, Nontender Objective-Diagnostic Laboratory: 03/31/20 06:38 03/30/20 03/31/20 09:20 06:38 WBC 12.3 H RBC 3.69 L Hgb 8.0 L Hct 25.2 L MCV 68 L MCH 21.6 L MCHC 31.7 L RDW 17.8 H Plt Count 170 Blood Type A POSITIVE Antibody Screen NEGATIVE Assessment and Plan(PN) - Time Spent with Patient Time with patient: Less than 15 minutes - Disposition Anticipated Discharge: Home Within: within 48 hours
[2020-03-31] MEDS: DOCUSATE SODIUM 100 MG CAPSULE PO SCH ×2 (10:55→19:28)
[2020-03-31] MEDS: PRENATAL VITAMIN W DHA CAPSULE PO SCH (10:55)
[2020-03-31] MEDS: OXYCODONE-ACETAMINOPHEN 5-325 MG TABLET PO PRN (12:37)
[2020-04-01] MEDS: IBUPROFEN 800 MG TABLET PO SCH ×3 (06:42→17:47)
[2020-04-01] MEDS: PRENATAL VITAMIN W DHA CAPSULE PO SCH (09:02)
[2020-04-01] MEDS: DOCUSATE SODIUM 100 MG CAPSULE PO SCH ×2 (09:02→17:47)
--- NOTE | 2020-04-01 09:09 | PDOC PROGRESS REPORT ---
Subjective-OB Progress Note for:: 04/01/20 Subjective: Doing well, no c/o, ready to go home, pain under control, eating, walking, passing gas, hsb at BS, has help at home with twins Physical Exam (OB) Vital Signs: Temp Pulse Resp BP Pulse Ox 98.1 F 62 16 115/72 100 04/01/20 04:13 04/01/20 04:13 04/01/20 04:13 04/01/20 04:13 04/01/20 04:13 Intake & Output 03/31/20 04/01/20 04/02/20 06:59 06:59 06:59 Intake Total 1000 1480 Output Total 1200 1700 Balance -200 -220 Weight 74.389 kg - PIH/Pre-Eclampsia DTR's: 2 + Clonus: Negative Headache: Absent Epigastric Pain: No Visual Changes: No - Dressing Removed: No Incision: Dressing Closure Type: Opsite - Lochia Lochia Amount: Scant < 10 ml Lochia Color: Rubra/Red - Abdomen Description: Soft, Round Hernia Present: No Fundal Description: Firm, Midline Fundal Height: u/u - u/2 Objective-Diagnostic Laboratory: 03/31/20 06:38 Assessment and Plan(PN) - Assessment and Plan (1) Status post tubal ligation at time of delivery, current hospitalization Is this a current diagnosis for this admission?: Yes (3) Twin delivered Is this a current diagnosis for this admission?: Yes (4) Anemia Qualifiers: Anemia type: iron deficiency Is this a current diagnosis for this admission?: Yes - Time Spent with Patient Time with patient: Less than 15 minutes Medications reviewed and adjusted accordingly: Yes - Disposition Anticipated Discharge: Home Within: within 24 hours
--- NOTE | 2020-04-01 09:15 | PDOC DISCHARGE SUMMARY ---
Impression - Admit/DC Date/PCP Admission Date/Primary Care Provider: 03/30/20 08:05 YNES CHEN MD Discharge Date: 04/01/20 - Discharge Diagnosis (1) Status post tubal ligation at time of delivery, current hospitalization Is this a current diagnosis for this admission?: Yes (3) Twin delivered Is this a current diagnosis for this admission?: Yes (4) Anemia Is this a current diagnosis for this admission?: Yes - Additional Information Resuscitation Status: Full Code Discharge Diet: As Tolerated, Regular Discharge Activity: Activity As Tolerated, No Driving, No Lifting Over 10 Pounds, No Lifting/Push/Pulling, Pelvic Rest, No tub bath Referrals: YNES CHEN MD [Primary Care Provider] - ([facility] 1 week) Prescriptions: Oxycodone HCl/Acetaminophen [Percocet 5-325 mg Tablet] 1 tab PO Q4HP PRN #20 tablet PRN Reason: Ibuprofen [Motrin 800 mg Tablet] 800 mg PO Q6 #30 tablet Home Medications: Pnv No.95/Ferrous Fum/Folic AC [ Caplet] 1 tab PO DAILY 03/08/20 Ibuprofen [Motrin 800 mg Tablet] 800 mg PO Q6 #30 tablet 04/01/20 Oxycodone HCl/Acetaminophen [Percocet 5-325 mg Tablet] 1 tab PO Q4HP PRN #20 tablet 04/01/20 HPI Gestational Age: 37 Reason(s) for Admission: Ceasarean Section-Primary, Tubal Ligation, Twins Procedures: NST, Ultrasound Intrapartum Procedure(s): : Low Cervical, Transverse Hospital Course Hospital Course: routine post op Results Laboratory Results: WBC 12.3 10^3/uL (4.0-10.5) H 03/31/20 06:38 RBC 3.69 10^6/uL (3.72-5.28) L 03/31/20 06:38 Hgb 8.0 g/dL (12.0-15.5) L 03/31/20 06:38 Hct 25.2 % (36.0-47.0) L 03/31/20 06:38 MCV 68 fl (80-97) L 03/31/20 06:38 MCH 21.6 pg (27.0-33.4) L 03/31/20 06:38 MCHC 31.7 g/dL (32.0-36.0) L 03/31/20 06:38 RDW 17.8 % (11.5-14.0) H 03/31/20 06:38 Plt Count 170 10^3/uL (150-450) 03/31/20 06:38 Lymph % (Auto) 17.1 % (13-45) 03/24/20 11:20 Long % (Auto) 7.5 % (3-13) 03/24/20 11:20 Eos % (Auto) 0.9 % (0-6) 03/24/20 11:20 Baso % (Auto) 0.2 % (0-2) 03/24/20 11:20 Absolute Neuts (auto) 6.6 10^3/uL (1.7-8.2) 03/24/20 11:20 Absolute Lymphs (auto) 1.5 10^3/uL (0.5-4.7) 03/24/20 11:20 Absolute Monos (auto) 0.7 10^3/uL (0.1-1.4) 03/24/20 11:20 Absolute Eos (auto) 0.1 10^3/uL (0.0-0.6) 03/24/20 11:20 Absolute Basos (auto) 0.0 10^3/uL (0.0-0.2) 03/24/20 11:20 Seg Neutrophils % 74.3 % (42-78) 03/24/20 11:20 POC Glucose 78 mg/dL (70-110) 03/30/20 08:46 Urine Color SUSHANT 03/24/20 11:15 Urine Appearance SLIGHTLY-CLOUDY 03/24/20 11:15 Urine pH 5.0 (5.0-9.0) 03/24/20 11:15 Ur Specific [place] 1.021 03/24/20 11:15 Urine Protein 30 mg/dL (NEGATIVE) H 03/24/20 11:15 Urine Glucose (UA) NEGATIVE mg/dL (NEGATIVE) 03/24/20 11:15 Urine Ketones TRACE mg/dL (NEGATIVE) H 03/24/20 11:15 Urine Blood NEGATIVE (NEGATIVE) 03/24/20 11:15 Urine Nitrite NEGATIVE (NEGATIVE) 03/24/20 11:15 Urine Bilirubin NEGATIVE (NEGATIVE) 03/24/20 11:15 Urine Urobilinogen 2.0 mg/dL (<2.0) H 03/24/20 11:15 Ur Leukocyte Esterase MODERATE (NEGATIVE) H 03/24/20 11:15 Urine WBC (Auto) 6 /HPF 03/24/20 11:15 Urine RBC (Auto) 2 /HPF 03/24/20 11:15 Urine Bacteria (Auto) TRACE /HPF 03/24/20 11:15 Squamous Epi Cells Auto 14 /HPF 03/24/20 11:15 Urine Mucus (Auto) MANY /LPF 03/24/20 11:15 Urine Ascorbic Acid 20 (NEGATIVE) H 03/24/20 11:15 Urine Opiates Screen NEGATIVE 03/24/20 11:15 Urine Methadone Screen NEGATIVE 03/24/20 11:15 Ur Barbiturates Screen NEGATIVE 03/24/20 11:15 Ur Phencyclidine Scrn NEGATIVE 03/24/20 11:15 Ur Amphetamines Screen NEGATIVE 03/24/20 11:15 U Benzodiazepines Scrn NEGATIVE 03/24/20 11:15 Urine Cocaine Screen NEGATIVE 03/24/20 11:15 U Marijuana (THC) Screen NEGATIVE 03/24/20 11:15 COVID-19 Source NASOPHARYNGEAL 03/24/20 11:25 COVID-19 (YIN) NOT DETECTED 03/24/20 11:25 Blood Type A POSITIVE 03/30/20 09:20 Antibody Screen NEGATIVE 03/30/20 09:20 Plan Health Concerns: anemai, pain management Plan of Treatment: discharge home, pain meds, rev S&S to report, including depression Goals: no complications Time Spent: Less than 30 Minutes
--- NOTE | 2020-04-01 10:10 | PDOC PROGRESS REPORT ---
Subjective-OB Progress Note for:: 04/01/20 Subjective: Dpoing well, ready for discharge, babies staying till am, Physical Exam (OB) Vital Signs: Temp Pulse Resp BP Pulse Ox 98.1 F 62 16 117/67 100 04/01/20 07:00 04/01/20 07:00 04/01/20 07:00 04/01/20 07:00 04/01/20 07:00 Intake & Output 03/31/20 04/01/20 04/02/20 06:59 06:59 06:59 Intake Total 1000 1480 Output Total 1200 1700 Balance -200 -220 Weight 74.389 kg - PIH/Pre-Eclampsia DTR's: 2 + Clonus: Negative Headache: Absent Epigastric Pain: No Visual Changes: No - Dressing Removed: No Incision: Dressing Closure Type: Opsite - Lochia Lochia Amount: Scant < 10 ml Lochia Color: Rubra/Red - Abdomen Description: Soft, Round Hernia Present: No Fundal Description: Firm, Midline Fundal Height: u/u - u/2 Objective-Diagnostic Laboratory: 03/31/20 06:38 Assessment and Plan(PN) - Assessment and Plan (1) Status post tubal ligation at time of delivery, current hospitalization Is this a current diagnosis for this admission?: Yes (2) Status post primary low transverse section Is this a current diagnosis for this admission?: Yes (3) Twin delivered Is this a current diagnosis for this admission?: Yes (4) Anemia Qualifiers: Anemia type: iron deficiency Is this a current diagnosis for this admission?: Yes - Time Spent with Patient Time with patient: Less than 15 minutes Medications reviewed and adjusted accordingly: Yes - Disposition Anticipated Discharge: Home
[2020-04-02] MEDS: IBUPROFEN 800 MG TABLET PO SCH ×3 (00:06→13:01)
[2020-04-02 08:18] VITALS: BP 130/86
[2020-04-02] MEDS: DOCUSATE SODIUM 100 MG CAPSULE PO SCH (09:32)
[2020-04-02] MEDS: PRENATAL VITAMIN W DHA CAPSULE PO SCH (09:32)
--- NOTE | 2020-04-02 10:31 | PDOC DISCHARGE SUMMARY ---
Impression - Admit/DC Date/PCP Admission Date/Primary Care Provider: 03/30/20 08:05 YNES CHEN MD Discharge Date: 04/02/20 - Discharge Diagnosis (1) Anemia Is this a current diagnosis for this admission?: Yes (2) Status post primary low transverse section Is this a current diagnosis for this admission?: Yes (3) Status post tubal ligation at time of delivery, current hospitalization Is this a current diagnosis for this admission?: Yes (4) Twin delivered Is this a current diagnosis for this admission?: Yes - Additional Information Resuscitation Status: Full Code Discharge Diet: As Tolerated, Regular Discharge Activity: Activity As Tolerated, No Driving, No Lifting Over 10 Pounds, No Lifting/Push/Pulling, Pelvic Rest, No tub bath Referrals: YNES CHEN MD [Primary Care Provider] - ([facility] 1 week. Follow up in 1 week. Call the office and make an appointment. ) Prescriptions: Oxycodone HCl/Acetaminophen [Percocet 5-325 mg Tablet] 1 tab PO Q4HP PRN #20 tablet PRN Reason: Ibuprofen [Motrin 800 mg Tablet] 800 mg PO Q6 #30 tablet Home Medications: Pnv No.95/Ferrous Fum/Folic AC [ Caplet] 1 tab PO DAILY 03/08/20 Ibuprofen [Motrin 800 mg Tablet] 800 mg PO Q6 #30 tablet 04/01/20 Oxycodone HCl/Acetaminophen [Percocet 5-325 mg Tablet] 1 tab PO Q4HP PRN #20 tab let 04/01/20 HPI Reason(s) for Admission: Ceasarean Section-Primary, Twins Procedures: NST Intrapartum Procedure(s): : Low Cervical, Transverse Hospital Course Hospital Course: routine post op Results Laboratory Results: WBC 12.3 10^3/uL (4.0-10.5) H 03/31/20 06:38 RBC 3.69 10^6/uL (3.72-5.28) L 03/31/20 06:38 Hgb 8.0 g/dL (12.0-15.5) L 03/31/20 06:38 Hct 25.2 % (36.0-47.0) L 03/31/20 06:38 MCV 68 fl (80-97) L 03/31/20 06:38 MCH 21.6 pg (27.0-33.4) L 03/31/20 06:38 MCHC 31.7 g/dL (32.0-36.0) L 03/31/20 06:38 RDW 17.8 % (11.5-14.0) H 03/31/20 06:38 Plt Count 170 10^3/uL (150-450) 03/31/20 06:38 Lymph % (Auto) 17.1 % (13-45) 03/24/20 11:20 [place] % (Auto) 7.5 % (3-13) 03/24/20 11:20 Eos % (Auto) 0.9 % (0-6) 03/24/20 11:20 Baso % (Auto) 0.2 % (0-2) 03/24/20 11:20 Absolute Neuts (auto) 6.6 10^3/uL (1.7-8.2) 03/24/20 11:20 Absolute Lymphs (auto) 1.5 10^3/uL (0.5-4.7) 03/24/20 11:20 Absolute Monos (auto) 0.7 10^3/uL (0.1-1.4) 03/24/20 11:20 Absolute Eos (auto) 0.1 10^3/uL (0.0-0.6) 03/24/20 11:20 Absolute Basos (auto) 0.0 10^3/uL (0.0-0.2) 03/24/20 11:20 Seg Neutrophils % 74.3 % (42-78) 03/24/20 11:20 POC Glucose 78 mg/dL (70-110) 03/30/20 08:46 Urine Color SUSHANT 03/24/20 11:15 Urine Appearance SLIGHTLY-CLOUDY 03/24/20 11:15 Urine pH 5.0 (5.0-9.0) 03/24/20 11:15 Ur Specific [place] 1.021 03/24/20 11:15 Urine Protein 30 mg/dL (NEGATIVE) H 03/24/20 11:15 Urine Glucose (UA) NEGATIVE mg/dL (NEGATIVE) 03/24/20 11:15 Urine Ketones TRACE mg/dL (NEGATIVE) H 03/24/20 11:15 Urine Blood NEGATIVE (NEGATIVE) 03/24/20 11:15 Urine Nitrite NEGATIVE (NEGATIVE) 03/24/20 11:15 Urine Bilirubin NEGATIVE (NEGATIVE) 03/24/20 11:15 Urine Urobilinogen 2.0 mg/dL (<2.0) H 03/24/20 11:15 Ur Leukocyte Esterase MODERATE (NEGATIVE) H 03/24/20 11:15 Urine WBC (Auto) 6 /HPF 03/24/20 11:15 Urine RBC (Auto) 2 /HPF 03/24/20 11:15 Urine Bacteria (Auto) TRACE /HPF 03/24/20 11:15 Squamous Epi Cells Auto 14 /HPF 03/24/20 11:15 Urine Mucus (Auto) MANY /LPF 03/24/20 11:15 Urine Ascorbic Acid 20 (NEGATIVE) H 03/24/20 11:15 Urine Opiates Screen NEGATIVE 03/24/20 11:15 Urine Methadone Screen NEGATIVE 03/24/20 11:15 Ur Barbiturates Screen NEGATIVE 03/24/20 11:15 Ur Phencyclidine Scrn NEGATIVE 03/24/20 11:15 Ur Amphetamines Screen NEGATIVE 03/24/20 11:15 U Benzodiazepines Scrn NEGATIVE 03/24/20 11:15 Urine Cocaine Screen NEGATIVE 03/24/20 11:15 U Marijuana (THC) Screen NEGATIVE 03/24/20 11:15 COVID-19 Source NASOPHARYNGEAL 03/24/20 11:25 COVID-19 (YIN) NOT DETECTED 03/24/20 11:25 Blood Type A POSITIVE 03/30/20 09:20 Antibody Screen NEGATIVE 03/30/20 09:20 Plan Health Concerns: anemai, pain management Plan of Treatment: discharge home, pain meds, rev S&S to report, including depression Goals: no complications Time Spent: Less than 30 Minutes
== END 2020-04-02 13:49 | disposition home or self-care (01) | DRG 785 ==
LOC: 2S 08:05
PROVIDERS: ADMIT Obstetrics & Gynecology; ATTEND Obstetrics & Gynecology
PROC: 10D00Z1 Extraction of Products of Conception, Low, Open Approach (ICD-10-PCS; principal; 2020-03-30)
PROC: 0UT70ZZ Resection of Bilateral Fallopian Tubes, Open Approach (ICD-10-PCS; 2020-03-30)
DX: O30.043 Twin pregnancy, dichorionic/diamniotic, third trimester (principal); Z30.2 Encounter for sterilization; O99.02 Anemia complicating childbirth; O24.420 Gestational diabetes mellitus in childbirth, diet controlled; D50.9 Iron deficiency anemia, unspecified; Z3A.37 37 weeks gestation of pregnancy; Z37.2 Twins, both liveborn
CPT/HCPCS: 1961; 36415; 64450; 76942; 80307; 81001; 82962; 85025; 85027; 86850; 86900; 86901; 87635; 88302; 88307; 94799; C9803; J0131; J0690; J1200; J1885; J2210; J2270; J2405; J2590; J2795; J3010; J3490; J7060; J7120